=== PATIENT | female | born 1975 | race Two or more races ===

== ENCOUNTER 2022-10-11 17:10 | Emergency (ER) | payer OTHER ==
[~2022-10-11] VITALS: Ht 162.6 cm; Wt 77.1 kg
[2022-10-11] MEDS ORDERED: PEPCID AC20 MG PO (21:23)
[2022-10-11] MEDS ORDERED: ZOFRAN8 MG PO (21:23)
== END 2022-10-11 21:59 | disposition home or self-care (01) ==
LOC: ER 17:10
DX: K52.9 Noninfective gastroenteritis and colitis, unspecified (principal); R11.2 Nausea with vomiting, unspecified; R10.9 Unspecified abdominal pain